=== PATIENT | male | born 1980 | race Caucasian/White ===

== ENCOUNTER 2017-04-18 13:37 | Emergency (ER) | END 2017-04-18 15:50 | disposition home or self-care (01) ==

== ENCOUNTER 2017-07-05 11:16 | Day surgery (SDC) | END 2017-07-05 18:18 | disposition home or self-care (01) ==

== ENCOUNTER 2018-08-29 07:38 | Day surgery (SDC) | payer OTHER ==
[~2018-08-29] VITALS: Ht 175.3 cm; Wt 76.5 kg
[2018-08-29] VITALS (15 sets, daily range): BP systolic 105–148; BP diastolic 61–89; PULSE 66–76; RESP 11–22; Ht 175.3 cm; Wt 76.5 kg
[~2018-08-29 07:38] MED LIST: HYDR-4011 PO; IBUP-1542 PO; PARO30TA68 PO; QUET50TA PO
--- NOTE | 2018-08-29 07:43 | PREOPHP ---
DATE OF ADMISSION: 08/29/2018 HISTORY: A 37-year-old male patient with a long history of nasal obstruction to breathing, had a ian al fracture on 2 occasions, complains of a blocked nose, seen in the office with evidence of an old n rafaela fracture and septal deviation, now admitted to the hospital for corrective nasal surgery. PAST MEDICAL HISTORY: ALLERGIES: NONE. DAILY MEDICATIONS: Paroxetine. MEDICAL CONDITIONS: None. PRIOR SURGERY: Back surgery. CLOTTING DISORDERS: None. HABITS: Alcohol: None. Tobacco: Occasional. Recreational drugs: Occasional. REVIEW OF SYSTEMS: Negative. PHYSICAL EXAMINATION GENERAL: Well-developed, well-nourished male patient in no acute distress. HEAD: Normocephalic. No masses or deformities. EARS: Ears and tympanic membranes are normal. NOSE: Evidence of an old nasal fracture with septal deviation. Oropharynx clear. NECK: No masses or adenopathy. CHEST: Clear to P and A. HEART: Regular sinus rhythm without murmur. ABDOMEN: Soft, bowel sounds normal. No masses or megaly. EXTREMITIES: Full range of motion without deformity. NEUROLOGIC: Physiologic. RECTAL: Not done. IMPRESSION: Septal deviation with turbinate hypertrophy. RECOMMENDATIONS: Admit for surgery. Dictated By: AL COOMBS/RYAN Conf#: [id number] DID#: [id number]
[2018-08-29] MEDS ORDERED: TRAZ-111 PO (08:49)
[2018-08-29] MEDS ORDERED: FAMO20TA18 PO (08:49)
[2018-08-29] MEDS ORDERED: PARO30TA48 PO (08:49)
[2018-08-29] MEDS ORDERED: LIDOCAINE 1%/EPI 30 ML INJ ONE ×2 (10:16→10:42)
[2018-08-29] MEDS ORDERED: COCAINE 4% 4 ML TOP ONE (10:43)
[2018-08-29] MEDS ORDERED: BACITRACIN/POLYMYXIN 28.35 GM OINT TOP ONE (10:43)
--- NOTE | 2018-08-29 10:47 | PREAC ---
Date/Time of Note Date/Time of Note DATE: 08/29/18 TIME: 10:46 Anesthesia Eval and Record Evaluation Time Pre-Procedure Interview DATE: 08/29/18 TIME: 10:46 Age 37 Sex male NPO: 8 hrs Preoperative diagnosis Septum deviation Planned procedure Septoplasty, turbinate reduction Past Medical History Past Medical History: None Surgery & Anesthesia Issues No known issue Meds Anticoagulation: No Beta Romain within 24 hr: No Reason Beta Romain not given: Pt. not on B-Romain Reported Medications Trazodone Hcl* (Trazodone Hcl*) 50 Mg Tablet, 50 MG PO QHS, #30 TAB 08/29/18 Famotidine* (Famotidine*) 20 Mg Tablet, 20 MG PO BID, #60 TAB 08/29/18 Paroxetine Hcl* (Paxil*) 30 Mg Tablet, 30 MG PO DAILY, TAB 08/29/18 Discontinued Reported Medications Quetiapine Fumarate* (Seroquel*) 50 Mg Tablet, 50 MG PO HS, TAB 06/21/17 Paroxetine Hcl* (Paroxetine*) 30 Mg Tablet, 30 MG PO DAILY, TAB 06/21/17 Discontinued Scripts Ibuprofen* (Motrin*) 600 Mg Tab, 600 MG PO Q6 for pain, #30 TAB Prov:ALE VILLEDA 03/26/18 Hydrocodone/Acetaminophen ([place] 5-325 Tablet) 1 Each Tablet, 1-2 TAB PO Q6H PRN for PAIN, #10 TAB Prov:ALE VILLEDA 03/26/18 Meds reviewed: Yes Allergies Coded Allergies: No Known Allergy (Unverified , 08/29/18) Allergies Reviewed: Yes Labs/Studies Labs Reviewed: Reviewed by anesthesiologist test: N/A Studies: ECG Pre-procedure Exam Last vitals Vital Signs Date Temp Pulse Resp B/P (MAP) Pulse Ox O2 O2 Flow FiO2 Time Delivery Rate 08/29/18 98.4 71 18 131/74 99 Room Air 08:48 (93) Airway: Adequate mouth opening, Adequate thyromental dist Mallampati: Mallampati II Teeth: Normal Lung: Normal Heart: Normal ASA Physical Status ASA physical status: 2 Emergency: None Planned Anesthetic General/MAC: ETT Planned Pain Management Parenteral pain med Pre-operative Attestations Prior to commencing anesthesia and surgery, the patient was re-evaluated, there was verification of: *The patient's identity *The results of appropriate recent lab work and preoperative vital signs *The above evaluation not changing prior to induction *Anesthetic plan, risk benefits, alternative and complications discussed with patient/family; questions answered; patient/family understands, accepts and wishes to proceed. ROSA MARIA HAYNES MD Aug 29, 2018 10:47
[2018-08-29] MEDS ORDERED: MIDAZOLAM 1 MG/ML 2 ML INJ ONE (10:49)
[2018-08-29] MEDS ORDERED: FENTAnyl 50 MCG/ML VIAL ONE (10:49)
[2018-08-29] MEDS ORDERED: LIDOCAINE 1%/EPI (1:100,000) (MDV) 20 ML INJ ONE (11:32)
[2018-08-29] MEDS ORDERED: ROCURONIUM 50 MG INJ ONE (11:39)
[2018-08-29] MEDS ORDERED: GLYCOPYRROLATE 0.4 MG INJ ONE (11:39)
[2018-08-29] MEDS ORDERED: ONDANSETRON 4 MG INJ ONE ×2 (11:39→12:04)
[2018-08-29] MEDS ORDERED: NEOSTIGMINE 3 MG/3 ML SYRINGE ONE (11:39)
[2018-08-29] MEDS ORDERED: PROPOFOL 20 ML ONE (11:39)
[2018-08-29] MEDS ORDERED: LIDOCAINE 2% (SDV) 5 ML INJ ONE (11:39)
--- NOTE | 2018-08-29 12:04 | PAC ---
Date/Time of Note Date/Time of Note DATE: 08/29/18 TIME: 12:04 Post-Anesthesia Notes Post-Anesthesia Note Last documented vital signs Vital Signs Date Temp Pulse Resp B/P (MAP) Pulse Ox O2 O2 Flow FiO2 Time Delivery Rate 08/29/18 98.4 71 18 131/74 99 Room Air 08:48 (93) Activity: WNL Respiratory function: WNL Cardiovascular function: WNL Mental status: Baseline Pain reasonably controlled: Yes Hydration appropriate: Yes Nausea/Vomiting absent: Yes Comments BP:118/64, P:78, Spo2;100%, T:98,8 ROSA MARIA HAYNSE MD Aug 29, 2018 12:04
[2018-08-29] MEDS ORDERED: HYDROmorphONE 1 MG/5 ML IV SYRINGE IV ONE (12:05)
[2018-08-29] MEDS ORDERED: HYDROCODONE/APAP (7.5/325) TAB PO PRN (12:30)
[2018-08-29] MEDS ORDERED: ONDANSETRON 4 MG INJ IV PRN (12:30)
[2018-08-29] MEDS ORDERED: MEPERIDINE 25 MG INJ IV PRN (12:30)
[2018-08-29] MEDS ORDERED: FENTAnyl 50 MCG/ML VIAL IV PRN (12:30)
[2018-08-29] MEDS ORDERED: DIPHENHYDRAMINE 50 MG INJ IV PRN (12:30)
[2018-08-29] MEDS ORDERED: METOCLOPRAMIDE 10 MG INJ IV PRN (12:30)
[2018-08-29] MEDS ORDERED: HYDROmorphONE 1 MG/5 ML IV SYRINGE IV PRN ×2 (12:30)
--- NOTE | 2018-08-30 09:26 | OPR ---
DATE OF OPERATION: PREOPERATIVE DIAGNOSIS: Septal deviation with turbinate hypertrophy. POSTOPERATIVE DIAGNOSIS: Septal deviation with turbinate hypertrophy. PROCEDURE PERFORMED: Septoplasty with turbinate reduction. DESCRIPTION OF PROCEDURE: The patient was brought to the operating room under parenteral sedation, g eneral oral endotracheal anesthesia with the patient in the supine position, sterile sheets and drape s applied. Nose anesthetized topically with 5% cottonoid cocaine and injectable Xylocaine 1% epineph rine 1:100,000. The inferior turbinate bones were lightly crushed and outfractured. A left septal h emitransfixion incision was made. Septal flaps were elevated exposing the quadrilateral cartilage an d the perpendicular plate of the ethmoid and vomer bones. The quadrilateral was detached from the cr est of the premaxilla and strips of cartilage removed inferiorly and posteriorly to correct cartilagi nous obstruction. A vomerine spur on the right side was mobilized with mallet and chisel and was rem nga with forceps. The septal compartment was then suctioned and the incision closed with interrupte d 4-0 chromic. The nose was packed with Nasopore sponge. A drip pad was applied. The patient awake vince and extubated in the operating room and returned to recovery in excellent condition. ESTIMATED BLOOD LOSS: Nil. COMPLICATIONS: None. Dictated By: AL COOMBS/RYAN Conf#: [id number] DID#: [id number]
== END 2018-08-29 13:38 | disposition home or self-care (01) ==
LOC: SDS 07:38
PROVIDERS: ATTEND Otolaryngology Otolaryngology/Facial Plastic Surgery
DX: J34.2 Deviated nasal septum (principal); J34.3 Hypertrophy of nasal turbinates
CPT/HCPCS: 30140; 30520; 88300; J1170; J2250; J2405; J2710; J3010; Z7512; Z7610